=== PATIENT | male | born 1995 | race Caucasian/White ===

== ENCOUNTER 2017-10-03 21:42 | Emergency (ER) | payer SELFPAY ==
[~2017-10-03] VITALS: Ht 182.9 cm; Wt 77.1 kg
[2017-10-03 21:56] VITALS: Ht 182.9 cm; Wt 77.1 kg
[2017-10-03 22:38] LABS: CALCIUM 9.1 mg/dL (8.5-10.1); CHLORIDE SERUM 102 mmol/L (98-107); CREATININE SERUM 1.1 mg/dL (0.7-1.3); GFR1 > 60 mL/min; GLUCOSE SERUM 96 mg/dL (74-106); MAGNESIUM 2.6 mg/dL (1.8-2.4); POTASSIUM SERUM 3.6 mmol/L (3.5-5.1); SODIUM SERUM 140 mmol/L (136-145)
[2017-10-03 22:55] VITALS: BP 113/64
== END 2017-10-03 22:55 | disposition home or self-care (01) ==
LOC: ED 21:42 → EDBD 21:42 → ED 22:55
PROVIDERS: Emergency Medicine
DX: G40.909 Epilepsy, unspecified, not intractable, without status epilepticus (principal); J45.909 Unspecified asthma, uncomplicated
CPT/HCPCS: J1953; J3490; J7030